=== PATIENT | female | born 1965 | race Caucasian/White ===

== ENCOUNTER 2021-12-14 08:08 | Outpatient (CLI) | payer OTHER | END 2021-12-14 08:09 | disposition home or self-care (01) | LOC: CSHWCC 08:08 | PROVIDERS: ATTEND Nurse Practitioner Family | DX: L97.319 Non-pressure chronic ulcer of right ankle with unspecified severity (principal); R60.0 Localized edema | CPT/HCPCS: 29581; 99203; G0463 ==

== ENCOUNTER 2021-12-14 08:35 | Outpatient (CLI) | payer OTHER | END 2021-12-14 08:36 | disposition home or self-care (01) | LOC: CSHWCC 08:35 | PROVIDERS: ATTEND Nurse Practitioner Family | DX: L97.311 Non-pressure chronic ulcer of right ankle limited to breakdown of skin (principal) ==

== ENCOUNTER 2021-12-17 09:36 | Outpatient (CLI) | payer OTHER | END 2021-12-17 09:37 | disposition home or self-care (01) | LOC: CSHWCC 09:36 | PROVIDERS: ATTEND Nurse Practitioner Family | DX: L97.319 Non-pressure chronic ulcer of right ankle with unspecified severity (principal); R60.0 Localized edema ==

== ENCOUNTER 2021-12-21 11:01 | Outpatient (CLI) | payer OTHER | END 2021-12-21 11:02 | disposition home or self-care (01) | LOC: CSHWCC 11:01 | PROVIDERS: ATTEND Nurse Practitioner Family | DX: L97.319 Non-pressure chronic ulcer of right ankle with unspecified severity (principal); R60.0 Localized edema | CPT/HCPCS: 99213; G0463 ==

== ENCOUNTER 2022-01-01 10:15 | Outpatient (CLI) | payer OTHER | END 2022-01-01 10:16 | disposition home or self-care (01) | LOC: CSHWCC 10:15 | PROVIDERS: ATTEND Nurse Practitioner Family | DX: L97.319 Non-pressure chronic ulcer of right ankle with unspecified severity (principal); R60.0 Localized edema ==